=== PATIENT | female | born 1955 | race Caucasian/White ===

== ENCOUNTER 2017-08-17 19:26 | Emergency (ER) | payer OTHER ==
[~2017-08-17] VITALS: Ht 147.3 cm; Wt 48.1 kg
[2017-08-17 19:40] VITALS: BP 210/117; PULSE 83; RESP 18; TEMP 97.9; O2SAT 97
[2017-08-17 21:24] VITALS: BP 202/120; PULSE 85; RESP 16; O2SAT 98
[2017-08-17] MEDS ORDERED: LISI-515 PO (21:49)
--- NOTE | 2017-08-17 21:51 | PD ---
HPI Chief Complaint: Hypertension Time Seen by Provider: 21:28 Travel History International Travel<30 days: No Contact w/Intl Traveler<30days: No Traveled to known affect area: No History of Present Illness HPI The patient is a 62-year-old female that states she took her blood pressure today "on a whim". She did not have any symptoms. She states she knows her blood pressures been increasing because of age but she is not on any anti- hypertensives at this time. She does have a primary care physician Dr. Ng. She denies any chest pain, shortness of breath, focal neurologic change, headache, nausea, vomiting, abdominal pain or fever. She denies any dysuria, frequency or urgency. She states her blood pressure was 186/113 at home. Her appointment with her primary care physician is not until next month. PFSH Past Medical History Medical History: Denies Significant Hx Diminished Hearing: No Immunizations Current: Yes Tetanus Vaccination: Unknown Influenza Vaccination: No ?: Not Menopausal: Yes Past Surgical History Surgical History: No Previous Surgery Social History Alcohol Use: No Tobacco Use: No Substance Use: No Allergies-Medications (Allergen,Severity, Reaction): Coded Allergies: No Known Allergies (Unverified , 08/17/17) Review of Systems Except as stated in HPI: all other systems reviewed are Neg Physical Exam Narrative GENERAL: Well-nourished, well-developed patient in no apparent distress. The vital signs show blood pressure 210/117 but otherwise normal. SKIN: Focused skin assessment warm/dry. HEAD: Normocephalic. EYES: No scleral icterus. No injection or drainage. NECK: Supple, trachea midline. No JVD or lymphadenopathy. CARDIOVASCULAR: Regular rate and rhythm without murmurs, gallops, or rubs. RESPIRATORY: Breath sounds equal bilaterally. No accessory muscle use. Lungs clear to auscultation bilaterally. GASTROINTESTINAL: Abdomen soft, non-tender, nondistended. MUSCULOSKELETAL: No cyanosis, or edema. BACK: Nontender without obvious deformity. No CVA tenderness. Data Data Last Documented VS Vital Signs Date Time Temp Pulse Resp B/P (MAP) Pulse Ox O2 Delivery O2 Flow Rate FiO2 08/17/17 21:24 85 16 202/120 (147) 98 08/17/17 21:24 Room Air 08/17/17 19:40 97.9 MDM Medical Decision Making Medical Screen Exam Complete: Yes Emergency Medical Condition: Yes Medical Record Reviewed: Yes Differential Diagnosis Hypertension, hypertensive urgency, elevated blood pressure, anxiety related blood pressure, white coat syndrome Narrative Course The patient does not appear anxious and I do not believe her blood pressure is anxiety related. This was not a hypertensive urgency, there are no symptoms and the blood pressure has likely been elevated for some time. I believe she does have hypertension and not just elevated blood pressure because she is in an emergency department. The pressure may be slightly elevated because of the surroundings here. Impression is: Asymptomatic blood pressure elevation Plan: The patient will be given lisinopril and try to move up the appointment with her primary care physician. Diagnosis Primary Impression: Elevated blood pressure reading without diagnosis of hypertension Additional Instructions: As we discussed, try to move up the appointment with your primary care physician. She is the one that should adjust your blood pressure medication. Should he get chest pain, shortness of breath, focal neurologic change or severe headache should return to emergency department. Med/Other Pt SpecificInfo: Prescription(s) given Scripts Lisinopril (Lisinopril) 20 Mg Tab 20 MG PO DAILY, #30 TAB 0 Refills Prov: Rubén Guardado MD 08/17/17 Disposition: 01 DISCHARGE HOME Condition: Stable Rubén Guardado MD Aug 17, 2017 21:51
[2017-08-17] MEDS ORDERED: LISINOPRIL 20 MG TAB PO ONE (22:00)
[2017-08-17 22:17] LABS: POTASSIUM 3.5 MEQ/L (3.5-5.1)
[2017-08-17 22:20] LABS: BICARBONATE 28.2 MEQ/L (21.0-32.0)
[2017-08-17 22:22] VITALS: BP 184/103
[2017-08-17 22:51] VITALS: BP 179/101
== END 2017-08-17 22:53 | disposition home or self-care (01) ==
LOC: PHED 19:26
DX: R03.0 Elevated blood-pressure reading, without diagnosis of hypertension (principal)
CPT/HCPCS: 80048; 99283